=== PATIENT | female | born 1945 | race Caucasian/White ===

== ENCOUNTER → 2018-01-01 | Outpatient (CLI) | payer OTHER ==
--- NOTE | 2018-01-01 11:21 | 2DMMODE ---
[place] [address] 2 D/M-MODE ECHOCARDIOGRAM Name: MAYELIN GOLD Room: [facility]#: [id number] Admission: 01/01/18 Attend Phys: Milan Pickett, Discharge: Date of : 49 Date of Service: 01/01/18 1121 Report #: [id number] THIS REPORT FOR: //name// APPROVED REPORT Study performed: 01/01/2018 10:14:33 EXAM: Comprehensive 2D, Doppler, and color-flow Echocardiogram Patient Location: Out-Patient Status: routine BSA: 2.10 HR: 48 bpm Other Information Study Quality: Good Indications Bradycardia 2D Dimensions LVEF(%): 71.60 (>50%) IVSd: 11.14 (7-11mm) LVOT Diam: 20.48 (18-24mm) LVDd: 46.01 mm PWd: 10.37 (7-11mm) Ascending Ao: 32.80 (22-36mm) LVDs: 27.26 (25-40mm) Aortic Root: 30.61 mm Rogers's LVEF: 71.60 % Volumes Left Atrial Volume (Systole) LA ESV Index: 19.10 mL/m2 Aortic Valve AoV Peak Francisco J.: 1.14 m/s AO Peak Gr.: 5.22 mmHg LVOT Max P.57 mmHg AO Mean Gr.: 2.86 mmHg LVOT Mean P.85 mmHg LVOT Max V: 0.94 m/s AO V2 VTI: 24.40 cm LVOT Mean V: 0.63 m/s WALTER (VTI): 3.21 cm2 LVOT V1 VTI: 23.74 cm Mitral Valve E/A Ratio: 1.17 MV Decel. Time: 203.05 [place] [address] 2 D/M-MODE ECHOCARDIOGRAM Name: MAYELIN GOLD Room: [facility]#: [id number] Admission: 01/01/18 Attend Phys: Milan Pickett, Discharge: Date of : 49 Date of Service: 01/01/18 1121 Report #: [id number] MV E Max Francisco J.: 0.75 m/s MV PHT: 58.88 ms MVA (PHT): 3.74 cm2 TDI E/Lateral E': 6.25 E/Medial E': 4.69 Medial E' Francisco J.: 0.16 m/s Lateral E' Francisco J.: 0.12 m/s Pulmonary Valve PV Peak Francisco J.: 1.00 m/s PV Peak Gr.: 3.99 mmHg Tricuspid Valve TR Peak Gr.: 23.82 mmHg RVSP: 28.82 mmHg Left Ventricle The left ventricle is normal size. There is normal LV segmental wall motion. There is normal left ventricular wall thickness. Left ventricular systolic function is normal. The left ventricular ejection fraction is within the normal range. LVEF is 55-60%. Grade I - abnormal relaxation pattern. Right Ventricle The right ventricle is normal size. The right ventricular systolic function is normal. Atria The left atrium size is normal. The right atrium size is normal. Aortic Valve The aortic valve is normal in structure. No aortic regurgitation is present. There is no aortic valvular stenosis. Mitral Valve The mitral valve is normal in structure. Mild mitral regurgitation. No evidence of mitral valve stenosis. Tricuspid Valve The tricuspid valve is normal in structure. Mild tricuspid regurgitation. The RVSP is _28.8 mmHg. Pulmonic Valve The pulmonary valve is normal in structure. There is no [place]mon[place] [address] 2 D/M-MODE ECHOCARDIOGRAM Name: MAYELIN GOLD Room: [facility]#: [id number] Admission: 01/01/18 Attend Phys: Milan Pickett, Discharge: Date of : 49 Date of Service: 01/01/18 1121 Report #: [id number] Great Vessels The aortic root is normal in size. IVC is normal in size and collapses with >50% inspiration Pericardium There is no pericardial effusion. <Conclusion> The left ventricle is normal size. There is normal left ventricular wall thickness. Left ventricular systolic function is normal. The left ventricular ejection fraction is within the normal range. LVEF is 55-60%. Grade I - abnormal relaxation pattern. The right ventricle is normal size. The left atrium size is normal. The aortic valve is normal in structure. The mitral valve is normal in structure. Mild mitral regurgitation. The tricuspid valve is normal in structure. Mild tricuspid regurgitation. The RVSP is _28.8 mmHg. IVC is normal in size and collapses with >50% inspiration There is no pericardial effusion. There is normal LV segmental wall motion. <ELECTRONICALLY SIGNED> By: Benton Andrew MD, FACC 01/01/18 112 20 112 Benton Andrew MD, FACC /INF
== END ==
LOC: M.CRD 10:00
DX: I08.1 Rheumatic disorders of both mitral and tricuspid valves (principal)